=== PATIENT | male | born 2000 | race Caucasian/White ===

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

== ENCOUNTER 2022-01-04 15:38 | Emergency (ER) | payer MEDICAID ==
[~2022-01-04] VITALS: Ht 165.1 cm; Wt 65.9 kg
[2022-01-04 15:47] VITALS: BP 126/76
[2022-01-04] MEDS ORDERED: IBUPROFEN 600 MG TABLET PO ONE (20:45)
== END 2022-01-04 22:32 | disposition home or self-care (01) ==
LOC: EMS 15:42
DX: R07.9 Chest pain, unspecified (principal); F10.20 Alcohol dependence, uncomplicated
CPT/HCPCS: 71045; 93005; 99283